=== PATIENT | male | born 1980 | race African-American/Black ===

== ENCOUNTER 2023-10-10 16:32 | Emergency (ER) | payer SELFPAY ==
[2023-10-10 16:39] VITALS: BP 135/100; PULSE 98; TEMP 36.8; O2SAT 97; BMI 24.2
--- NOTE | 2023-10-10 16:44 | PC.NURSE ---
abscess to crac of bottom, no drainage and area firm observed with assessment from PA at bedside.
[2023-10-10] MEDS: LIDOCAINE HCL 2% PF 100 MG/5 ML VIAL 10 ML INJ (17:18)
--- NOTE | 2023-10-10 17:33 | ED_ITS ---
HPI - Skin/Abscess/Foreign Bdy General Chief complaint: Skin/Abscess/Foreign Body Stated complaint: LUMP Time Seen by Provider: 10/10/23 16:41 Source: patient Mode of arrival: walk-in History of Present Illness HPI narrative: Pt is 43-year-old male presents to the ER for evaluation of pain and swelling to the left buttock, noted symptoms over the past several days. He denies a history of diabetes. He has had prior abscess but not this large or painful. 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 Patient presented to our ER as it was the closest facility as his symptoms worsen. Patient does not take any daily medications. He did take a Tylenol aspirin mixture to help with pain prior to arrival. MD complaint: Reports abscess/boil (Buttock (left ) cleft approximately 2 inches in diamater approx 2 inches from rectum on the left inner cheek) Onset (ago): day(s) Location: Reports buttocks; Denies genitals Quality: Reports aching, dull and constant Pain Consistency: Reports constant Exacerbating factors: Reports other (sitting) Treatments prior to arrival: Reports NSAID Related Data Allergies Allergy/AdvReac Type Severity Reaction Status Date / Time No Known Drug Allergies Allergy Verified 10/10/23 16:43 Review of Systems ROS Constitutional Denies: fever or chills Eyes Denies: change in vision Ears, nose, mouth, and throat Denies: throat pain or neck pain Cardiovascular Denies: chest pain or palpitations Respiratory Denies: shortness of breath or cough Gastrointestinal Denies: abdominal pain Musculoskeletal Denies: back pain, neck pain or extremity pain Integumentary/Breast Denies: rash Neurological Denies: headache or numbness in extremities Psychiatric Denies: anxiety Endocrine Denies: excessive urination Hematologic/Lymphatic Denies: easy bruising Exam Narrative Exam Narrative: Nurses notes and vital signs reviewed and patient is not hypoxic. General: The patient appears well and in no apparent distress. Patient is resting comfortably on cart. Skin: Warm, dry, no pallor notedLeft inner buttock noted for a 2 inch firm region concerning for abscess with fluctuant center, favoring the midline but at least 2 inches cephalaud away from the rectum. No significant erythema or active drainage. No involvement of the perineum. Head: Normocephalic, atraumatic Neck: Supple, trachea mid-line, no tenderness, no lymphadenopathy Eye: Pupils are equal, round and reactive to light, EOMI Ears, Nose, Mouth, and Throat: external exam unremarkable. Cardiovascular: Regular Rate and Rhythm Respiratory: Patient is in no distress, no accessory muscle use, lungs are clear to auscultation, no wheezing, rales or rhonchi. Chest Wall: no tenderness Back: non-tender, no CVA tenderness Musculoskeletal: normal ROM, no tenderness, no swelling GI: Normal bowel sounds, no tenderness to palpation, no masses appreciated. No rebound, guarding, or rigidity noted. Neurological: A&O x4 Psychiatric: Cooperative Constitutional Vital Signs, click to edit/add: Last Vital Signs Temp 98.3 F 10/10/23 16:39 Pulse 98 H 10/10/23 16:39 Resp 18 10/10/23 16:39 BP 135/100 H 10/10/23 16:39 Pulse Ox 97 10/10/23 16:39 O2 Del Method Room Air 10/10/23 16:39 Course Vital Signs Vital signs: Vital Signs Temperature 98.3 F 10/10/23 16:39 Pulse Rate 98 H 10/10/23 16:39 Respiratory Rate 18 10/10/23 16:39 Blood Pressure 135/100 H 10/10/23 16:39 Pulse Oximetry 97 10/10/23 16:39 Oxygen Delivery Method Room Air 10/10/23 16:39 Temperature 98.3 F 10/10/23 16:39 Pulse Rate 98 H 10/10/23 16:39 Respiratory Rate 18 10/10/23 16:39 Blood Pressure 135/100 H 10/10/23 16:39 Pulse Oximetry 97 10/10/23 16:39 Oxygen Delivery Method Room Air 10/10/23 16:39 MDM - Skin/Abscess/Foreign Bdy MDM Narrative Medical decision making narrative: Patient away from home, unable to follow-up with PCP. Currently traveling as he is a tank truck operator. We discussed the need for sitz bath's, warm compresses. Patient will be limited with his persistent driving schedule. He will be placed on antibiotics with risks and benefits discussed. Recommend frequent dressing changes to encourage drainage. We discussed the need to follow-up with an ER for reevaluation if his symptoms worsen or new symptoms develop as he will be traveling. Patient thankful, noting improvement in pain status post incision and drainage. No narcotic medication given patient driving semi-. Patient feels comfortable with Motrin and instructions given. The patient is to followup with Emergency in next 2-3 days or to return to the emergency department should any of the signs or symptoms worsen or new symptoms develop. Patient had questions answered. The patient agrees with the following Diagnosis and Treatment plan and the patient will be discharged home. Discharge Plan Discharge Stand Alone Forms: Portal Instructions Chief Complaint: Skin/Abscess/Foreign Body Clinical Impression: Abscess of left buttock Patient Disposition: Home, Self-Care Time of Disposition Decision: 17:33 Condition: Good Print Language: Swedish Instructions: Abscess Incision and Drainage (DC) Additional Instructions: Written prescriptions for Bactrim and keflex antibiotic, ( motrin for pain) Will need to go to [facility] for follow up/ recheck if symptoms not improvingin 2-4 days Referrals: Physician,Non-Staff, MD [Primary Care Provider] - 1 week Procedures ED ID Incision & Drainage Moderate Sedation Message Please read if using moderate sedation: Incision and drainage: A single layer of iodine was used to prep the area. Drapes were placed to ensure isolation of the abscess and surrounding skin tissue. A regional field block was performed with 1% lidocaine 7ml . Incision was made with an 11 blade to the full dimension of the abscess, significant amount purulent material was expressed. Cultures were not obtained. given simple apperance. The abscess was explored, the use of hemostats were used to break up the septum and loculations within the abscess. A dry sterile dressing was placed. Patient tolerated the procedure well and wound was dressed with gauze. Patient is to follow-up in the next 2 days with PCP or ED to have area evaluated.
[2023-10-10] MEDS: CEPHALEXIN 500 MG CAPSULE PO (17:44)
[2023-10-10] MEDS: IBUPROFEN 600 MG TABLET PO (17:44)
[2023-10-10] MEDS: SULFAMETHOXAZOLE/TRIMETHOPRIM 800-160 MG TABLET 1 TAB PO (17:44)
[2023-10-10 17:59] VITALS: BP 160/90; PULSE 90; O2SAT 99
== END 2023-10-10 18:01 | disposition home or self-care (01) ==
PROVIDERS: Emergency Provider Emergency Medicine
DX: L02.31 Cutaneous abscess of buttock (principal)
CPT/HCPCS: 10060; 99283